=== PATIENT | female | born 1930 | race Caucasian/White ===

== ENCOUNTER → 2016-10-02 | Outpatient (CLI) | payer MEDICARE, BC ==
--- NOTE | 2016-10-02 17:11 | PCVCIMAG ---
EXAM: BILATERAL LOWER EXTREMITY ARTERIAL DUPLEX INDICATION: Peripheral Arterial Disease. Leg pain. FINDINGS: Right Leg: Satisfactory arterial waveforms throughout the common/profunda/superficial femoral, popliteal, anterior tibial, peroneal, and posterior tibial arteries. No flow limiting stenosis seen. Left Leg: Elevated systolic velocity mid common femoral artery of 636 cm/s consistent with 99% stenosis. The profunda femoral artery is patent. The superficial femoral artery and popliteal arteries are patent. The anterior tibial, peroneal, and posterior tibial arteries are patent. IMPRESSION: No flow limiting stenosis in the right lower extremity. Interval development of 99% stenosis mid left common femoral artery. LOC:[id number]
== END | disposition home or self-care (01) ==
LOC: PCVCIMAG 14:01
PROVIDERS: ATTEND Nuclear Medicine Nuclear Cardiology
DX: I70.202 Unspecified atherosclerosis of native arteries of extremities, left leg (principal); I77.9 Disorder of arteries and arterioles, unspecified; I12.9 Hypertensive chronic kidney disease with stage 1 through stage 4 chronic kidney disease, or unspecified chronic kidney disease; N18.9 Chronic kidney disease, unspecified; E78.00 Pure hypercholesterolemia, unspecified; D50.0 Iron deficiency anemia secondary to blood loss (chronic); Z87.891 Personal history of nicotine dependence; Z88.1 Allergy status to other antibiotic agents
CPT/HCPCS: 93925; G0463

== ENCOUNTER → 2016-10-09 | Outpatient (CLI) | payer MEDICARE, BC ==
--- NOTE | 2016-10-09 10:46 | PCVCINTER ---
EXAM: 1. AORTOGRAM AND BILATERAL LOWER EXTREMITY RUNOFF ANGIOGRAM 2. BILATERAL RENAL ANGIOGRAPHY 3. COMPLETE MESENTERIC ANGIOGRAPHY. 4. SUPERIOR MESENTERIC ARTERY STENT PLACEMENT. 5. LEFT RENAL ARTERY STENT PLACEMENT. INDICATION: Peripheral arterial disease. Coronary artery disease. Nonhealing ulcer right lower extremity. Hypertension. Renal atherosclerosis. PROCEDURE: Procedure and risks of angiography intervention is appropriate including limb loss stroke and were discussed with the patient's family and consent obtained. The patient's right groin was prepped abnormal sterile fashion. IV conscious sedation was used to procedure with appropriate monitoring from 8:30 AM through 10:00 AM. Ultrasound was used to interrogate the right groin and showed the right common femoral artery to be patent. A permanent spot film was obtained. Under ultrasound guidance access into the right common femoral artery was obtained and a 5 Kosovan sheath was placed. Through this a 5 Kosovan flush catheter was placed into the abdominal aorta at the level of the renal arteries and AP aortogram was performed. Catheter was positioned at the aortic bifurcation and both oblique views of the pelvis were obtained. Catheter was positioned into the right external iliac artery and right leg runoff angiography was performed. Catheter was exchanged for a visceral catheter was placed into the right renal arteries and right renal angiograms obtained. Catheter was placed into the the left renal arteries and left renal angiograms were obtained. Catheter was advanced to the level of the left external iliac artery and left leg runoff angiography was obtained. Catheter was placed into the common origin of the celiac axis/SMA and celiac and superior mesenteric artery angiograms obtained. Catheter was placed at the origin of the inferior mesenteric artery and inferior mesenteric artery angiogram obtained. Patient was given 4000 units of heparin. Stent placement across the areas of high-grade stenosis in the common celiac/SMA trunk and proximal superior mesenteric artery was carried out with a 6 x 24 and 5 x 24 Palmaz blue stent with subsequent dilatation to 6.0 mm. Stent placement across the areas of high-grade stenosis in the proximal left renal artery was carried out with a 5 x 15 Palmaz blue stent with subsequent dilatation to 5.0 mm. Catheters and wires removed. Sheath was removed and hemostasis obtained using the FISH device. No immediate complications. FINDINGS: Aortogram: There is one right and one left renal artery. Moderate plaque infrarenal abdominal aorta without significant stenosis. Abnormal collaterals from the [place] to superior mesenteric artery distribution is noted. Pelvis: Moderate plaque mid right common iliac artery causing mild stenosis not felt be flow-limiting. The left common iliac artery is patent. The right and left external iliac arteries are patent. The right and left internal iliac arteries are patent. Right renal artery: Moderate plaque at the origin of the vessel results in 60% stenosis not felt to be critically flow-limiting. Left renal artery: Moderate eccentric plaque proximal vessel results in 80% stenosis. Celiac axis: The celiac axis shares a common trunk with the superior mesenteric artery. This common trunk has a diffuse 90% stenosis. The common hepatic and splenic arteries are patent. Superior mesenteric artery: The superior mesenteric artery shares a common trunk with the celiac axis. This common trunk has a diffuse 90% stenosis. 90% stenosis is also seen in the proximal trunk of the superior mesenteric artery. The distal branches are patent. Inferior mesenteric artery: The inferior mesenteric artery has hypertrophied and supplies collaterals to the superior mesenteric artery. There is a 40% stenosis at its origin not felt to be hemodynamically significant. Right leg: Mild plaque in the common femoral artery does not cause significant stenosis. The profunda femoral artery is patent. Mild plaque throughout the superior mesenteric artery and popliteal artery without significant stenosis. Three-vessel runoff into the foot. Left leg: Large densely calcified plaque in the distal common femoral artery causes a 95% stenosis of the distal common femoral artery and at the origin of the superficial femoral artery. Origin of the profunda femoral artery is patent. Mild plaque mid superficial femoral artery does not cause significant stenosis. The popliteal artery shows good patency. Three-vessel runoff into the foot. Common origin celiac axis/superior mesenteric artery and proximal superior mesenteric artery: Following stent placements as above these vessels are widely patent. Left renal artery: Following procedure as above this vessel shows satisfactory patency with only mild residual stenosis. 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 80% left renal artery stenosis was treated as above with satisfactory patency restored. We will arrange for the patient see Dr. Mahoney of cardiothoracic surgery for a left common femoral artery endarterectomy. LOC:[id number]
--- NOTE | 2016-10-09 22:41 | PCVCIMAG ---
EXAM: DUPLEX ULTRASOUND OF THE RIGHT GROIN INDICATION: Groin swelling and pain. FINDINGS: No pseudoaneurysm is present. The common femoral artery and vein are patent. No arteriovenous fistula is seen. There is a 2.2 x 3.5 x 8.8 cm subcutaneous hematoma. IMPRESSION: Study is negative for pseudoaneurysm. Moderate sized subcutaneous hematoma. LOC:OFFICE
== END | disposition home or self-care (01) ==
LOC: PCVCINTER 07:36
PROVIDERS: ATTEND Nuclear Medicine Nuclear Cardiology
DX: I70.213 Atherosclerosis of native arteries of extremities with intermittent claudication, bilateral legs (principal); I25.10 Atherosclerotic heart disease of native coronary artery without angina pectoris; I10 Essential (primary) hypertension; I70.1 Atherosclerosis of renal artery
CPT/HCPCS: 36245; 36246; 36252; 37236; 75716; 75726; 76937; 93926; 99152; 99153; C1725; C1751; C1769; C1876; C1887; C1894; Q9966

== ENCOUNTER → 2017-03-05 | Outpatient (CLI) | payer MEDICARE, BC | END | disposition home or self-care (01) | LOC: PCVCIMAG 09:29 | DX: I65.23 Occlusion and stenosis of bilateral carotid arteries (principal); I77.1 Stricture of artery; I73.9 Peripheral vascular disease, unspecified; K55.1 Chronic vascular disorders of intestine; I70.1 Atherosclerosis of renal artery; I77.9 Disorder of arteries and arterioles, unspecified; E78.00 Pure hypercholesterolemia, unspecified; I12.9 Hypertensive chronic kidney disease with stage 1 through stage 4 chronic kidney disease, or unspecified chronic kidney disease; N18.9 Chronic kidney disease, unspecified; Z87.891 Personal history of nicotine dependence; Z79.899 Other long term (current) drug therapy | CPT/HCPCS: 36415; 76770; 93880; 93926; 93975; G0463 ==

== ENCOUNTER → 2017-03-13 | Outpatient (CLI) | payer MEDICARE, BC ==
[~2017-03-13] MED LIST: ACETAMINOPHEN 500 MG TABLET PO; DIAZEPAM 10 MG TABLET.; EPINEPHrine 1 MG/ML VIAL; EPTIFIBATIDE BOLUS 2,000 MCG/ML 10ML VIAL. IV; HEPARIN SODIUM 5,000 UNIT/ML VIAL for PCVC.; IOHEXOL 300 MG/ML 100ML VIAL.; IV NORMAL SALINE 1000ML BAG 1,000 ML; LIDOCAINE 1% Multi-Dose 20 ML VIAL.; MIDAZOLAM HCL/PF 2 MG/2 ML VIAL.; fentaNYL PF VIAL 100 MCG/2 ML VIAL; hydrALAZINE 20 MG/ML VIAL.
== END | disposition home or self-care (01) ==
LOC: PCVCINTER 07:25
DX: I70.212 Atherosclerosis of native arteries of extremities with intermittent claudication, left leg (principal); I10 Essential (primary) hypertension; I70.1 Atherosclerosis of renal artery
CPT/HCPCS: 36245; 36252; 37246; 75630; 75726; 76937; 99152; 99153; C1713; C1725; C1751; C1769; C1894; J0171; J0360; J1327; J1644; J2250; J3010; J7030; Q9967

== ENCOUNTER → 2017-03-18 | Outpatient (CLI) | payer MEDICARE, BC | END | disposition home or self-care (01) | LOC: PCVCIMAG 11:31 | DX: R10.30 Lower abdominal pain, unspecified (principal); R19.09 Other intra-abdominal and pelvic swelling, mass and lump; I12.9 Hypertensive chronic kidney disease with stage 1 through stage 4 chronic kidney disease, or unspecified chronic kidney disease; N18.9 Chronic kidney disease, unspecified; I70.213 Atherosclerosis of native arteries of extremities with intermittent claudication, bilateral legs; Z88.1 Allergy status to other antibiotic agents; Z87.891 Personal history of nicotine dependence; Z79.899 Other long term (current) drug therapy | CPT/HCPCS: 93926 ==